=== PATIENT | female | born 1960 | race Caucasian/White ===

== ENCOUNTER → 2017-12-12 | Outpatient (CLI) | payer BC ==
[~2017-12-12] MED LIST: CEFTIN250 MG PO; LEVOTHYROXINE PO; LORTAB 5/500 501 TAB PO; PHENERGAN 25 TA25 MG PO; PREMARIN0.9 MG PO; PRILOSEC 20MG20 MG PO; [UNRECOGNIZED DRUG - OTHER]
== END ==
LOC: MC.RAD 14:59
DX: Z12.31 Encounter for screening mammogram for malignant neoplasm of breast (principal); Z98.82 Breast implant status

== ENCOUNTER 2018-08-04 16:08 | Emergency (ER) | payer BC ==
[~2018-08-04] VITALS: Ht 160 cm; Wt 49.1 kg
[2018-08-04 16:12] VITALS: TEMP 97.4
[2018-08-04 16:40] LABS: BASO % 0.1 % (0.0-2.0); EOS % 0.2 % (0-4.0); GRAN # 12.5 (1.4-6.5); GRAN % 80.9 % (42.2-75.2); LYMPH # 1.4 (1.2-3.4); LYMPH % 8.9 % (20.0-51.0); MEAN CELL VOLUME 101 fl (80.0-100.0); MEAN CORPUSCULAR HGB CONC 35 g/dl (33.0-37.0); MEAN PLATELET VOLUME 9.2 fl (7.4-10.4); MONO # 1.1 (0.1-0.6); MONO % 6.9 % (1.7-9.3); PLATELET COUNT 606 K/mm3 (130-400); RED BLOOD COUNT 1.99 M/mm3 (4.10-5.30); REDCELL DISTRIBUTION WIDTH-CV 16.9 % (11.5-14.5)
[2018-08-04 16:42] LABS: HEMATOCRIT 20.1 % (37.0-47.0); MEAN CORPUSCULAR HEMOGLOBIN 35 pg (27.0-31.0)
[2018-08-04 16:54] LABS: ALBUMIN 2.8 gm/dL (3.5-5.0); BILIRUBIN,TOTAL 0.5 mg/dL (0.0-1.0); CALCIUM 8.6 mg/dL (8.4-10.2); CREATININE, serum 0.42 mg/dL (0.52-1.25); POTASSIUM 3.2 mmol/L (3.4-5.0); TOTAL PROTEIN 5.7 gm/dL (6.4-8.2)
[2018-08-04] MEDS ORDERED: OXY IR5 MG PO (16:58)
[2018-08-04 17:04] LABS: C-REACTIVE PROTEIN 15.2 mg/dL (0.0-0.9)
[2018-08-04 18:08] LABS: PROTHROMBIN TIME 11.6 SECONDS (9.7-12.8)
[2018-08-04 20:50] VITALS: BP 136/80; PULSE 96
== END 2018-08-04 20:50 | disposition short-term general hospital (02) ==
LOC: COL.ER 16:08
PROVIDERS: Family Medicine
DX: L76.32 Postprocedural hematoma of skin and subcutaneous tissue following other procedure (principal); Z98.890 Other specified postprocedural states
CPT/HCPCS: J1170; J2405; J7030; Q9967

== ENCOUNTER → 2018-08-15 | Outpatient (CLI) | payer BC ==
[~2018-08-15] MED LIST changes: +OXY IR5 MG PO
[2018-08-15 15:53] LABS: BASO % 0.4 % (0.0-2.0); EOS # 0.1 (0.0-0.7); EOS % 0.7 % (0-4.0); GRAN # 6.9 (1.4-6.5); GRAN % 76.6 % (42.2-75.2); LYMPH % 10.7 % (20.0-51.0); MEAN CELL VOLUME 101 fl (80.0-100.0); MEAN CORPUSCULAR HGB CONC 33 g/dl (33.0-37.0); MEAN PLATELET VOLUME 9.4 fl (7.4-10.4); MONO % 11.3 % (1.7-9.3); PLATELET COUNT 504 K/mm3 (130-400); RED BLOOD COUNT 2.78 M/mm3 (4.10-5.30); REDCELL DISTRIBUTION WIDTH-CV 18.5 % (11.5-14.5)
[2018-08-15 15:54] LABS: HEMATOCRIT 28.2 % (37.0-47.0); HEMOGLOBIN 9.3 g/dl (12.5-16.0); MEAN CORPUSCULAR HEMOGLOBIN 33 pg (27.0-31.0)
[2018-08-15 16:26] LABS: ERYTHROCYTE SEDIMENTATION RATE 58 mm/hr (0-30)
== END ==
LOC: COL.LAB 15:02
DX: R68.89 Other general symptoms and signs (principal)

== ENCOUNTER → 2018-08-22 | Outpatient (CLI) | payer BC ==
[2018-08-22 12:59] LABS: BASO # 0.1 (0.0-0.2); BASO % 0.6 % (0.0-2.0); EOS # 0.1 (0.0-0.7); EOS % 0.7 % (0-4.0); GRAN # 6.5 (1.4-6.5); GRAN % 75.2 % (42.2-75.2); HEMATOCRIT 28.7 % (37.0-47.0); HEMOGLOBIN 9.6 g/dl (12.5-16.0); LYMPH # 0.9 (1.2-3.4); LYMPH % 9.9 % (20.0-51.0); MEAN CELL VOLUME 101 fl (80.0-100.0); MEAN CORPUSCULAR HEMOGLOBIN 34 pg (27.0-31.0); MEAN CORPUSCULAR HGB CONC 33 g/dl (33.0-37.0); MEAN PLATELET VOLUME 9.2 fl (7.4-10.4); MONO # 1.2 (0.1-0.6); MONO % 13.4 % (1.7-9.3); PLATELET COUNT 486 K/mm3 (130-400); RED BLOOD COUNT 2.84 M/mm3 (4.10-5.30); REDCELL DISTRIBUTION WIDTH-CV 17.5 % (11.5-14.5)
[2018-08-22 13:46] LABS: ERYTHROCYTE SEDIMENTATION RATE 72 mm/hr (0-30)
== END ==
LOC: COL.LAB 12:32
DX: R68.89 Other general symptoms and signs (principal)

== ENCOUNTER → 2018-08-29 | Outpatient (CLI) | payer BC ==
[2018-08-29 14:29] LABS: BASO # 0.1 (0.0-0.2); BASO % 0.5 % (0.0-2.0); EOS % 0.4 % (0-4.0); GRAN # 7.4 (1.4-6.5); GRAN % 77.3 % (42.2-75.2); LYMPH # 1.1 (1.2-3.4); MEAN CELL VOLUME 99 fl (80.0-100.0); MEAN CORPUSCULAR HEMOGLOBIN 34 pg (27.0-31.0); MEAN CORPUSCULAR HGB CONC 34 g/dl (33.0-37.0); MONO % 10.4 % (1.7-9.3); PLATELET COUNT 553 K/mm3 (130-400); RED BLOOD COUNT 2.98 M/mm3 (4.10-5.30); REDCELL DISTRIBUTION WIDTH-CV 16.1 % (11.5-14.5)
[2018-08-29 14:31] LABS: HEMATOCRIT 29.4 % (37.0-47.0)
[2018-08-29 14:56] LABS: ERYTHROCYTE SEDIMENTATION RATE 54 mm/hr (0-30)
== END ==
LOC: COL.LAB 13:59
DX: R68.89 Other general symptoms and signs (principal)

== ENCOUNTER 2018-12-11 10:45 | Outpatient (RCR) | payer BC | END 2018-12-12 | disposition home or self-care (01) | LOC: WSC | DX: M43.26 Fusion of spine, lumbar region (principal) ==

== ENCOUNTER → 2018-12-25 | Outpatient (CLI) | payer BC | LOC: MC.RAD 11-20 10:30 | DX: Z12.31 Encounter for screening mammogram for malignant neoplasm of breast (principal); Z98.82 Breast implant status ==

== ENCOUNTER 2019-03-26 09:45 | Outpatient (RCR) | payer BC | END 2019-04-01 | disposition home or self-care (01) | LOC: WSC | DX: M43.25 Fusion of spine, thoracolumbar region (principal) ==

== ENCOUNTER 2019-06-25 09:45 | Outpatient (RCR) | payer BC | END 2019-07-01 | disposition home or self-care (01) | LOC: WSPT | DX: Z98.1 Arthrodesis status (principal) ==

== ENCOUNTER 2019-08-09 10:15 | Outpatient (RCR) | payer BC | END 2019-09-30 | disposition home or self-care (01) | LOC: WSPT | DX: Z98.1 Arthrodesis status (principal) ==

== ENCOUNTER → 2019-11-13 | Outpatient (CLI) | payer BC | LOC: MC.RAD 10:57 | DX: Z12.31 Encounter for screening mammogram for malignant neoplasm of breast (principal) ==

== ENCOUNTER 2020-01-11 09:15 | Outpatient (RCR) | payer BC | END 2020-01-13 | LOC: WSC | DX: Z98.1 Arthrodesis status (principal) ==

== ENCOUNTER → 2020-04-14 | Outpatient (RCR) | payer BC | END | disposition home or self-care (01) | LOC: WSPT → WSC 01-15 10:37 → WSPT 01-18 09:00 → WSC 01-25 09:15 → WSPT 01-28 09:00 → WSC 02-01 09:15 → WSPT 02-04 09:00 → WSC 02-08 09:15 → WSPT 02-11 09:00 → WSC 02-25 09:15 → WSPT 03-17 10:00 → WSC 03-21 14:00 → WSPT 03-24 09:45 → WSC 03-28 09:15 → WSPT 03-31 09:00 → WSC 04-04 09:15 → WSPT 04-07 09:15 | DX: M43.25 Fusion of spine, thoracolumbar region (principal) ==

== ENCOUNTER → 2020-06-16 | Outpatient (RCR) | payer BC | END | disposition home or self-care (01) | LOC: WSPT → WSC 04-25 09:15 → WSPT 05-05 09:00 → WSC 05-16 09:15 → WSPT 05-19 09:00 → WSC 05-26 09:15 → WSPT 05-30 10:00 → WSC 06-09 09:15 → WSPT 09:00 | DX: Z98.1 Arthrodesis status (principal) ==

== ENCOUNTER 2020-09-15 09:15 | Outpatient (RCR) | payer BC | END 2020-09-18 | disposition still patient (30) | LOC: WSC | DX: Z98.1 Arthrodesis status (principal) ==

== ENCOUNTER → 2020-09-23 | Outpatient (CLI) | payer BC ==
[~2020-09-23] MED LIST changes: +CYMBALTA 30MG30 MG PO; +DESYREL 50MG50 MG PO; +DUO-KAPS1 CAP PO; +HELIOCARE PO; +HUMIRA(CF)10 MG/0.1 SQ; +MAGNESIUM250 M1 PO; +NATURE'S BLEND100 M2 PO; +NEURONTIN300 MG/CAP PO; +NORVASC2.5 MG PO; +PEPCID AC 10MG10 MG PO; +PLAQUENIL 200M200 MG PO; +PREDNISONE 5MG5 MG PO; +PREVAGEN PO; +REQUIP 0.5MG0.5 MG PO; +REVIA 50MG TABL50 MG PO; +SYNTHROID0.088 MG/T PO; +VITAMIN D31000 I1 PO; +[UNRECOGNIZED DRUG - OTHER] PO
== END ==
LOC: COL.RAD 12:30
DX: L97.513 Non-pressure chronic ulcer of other part of right foot with necrosis of muscle (principal); L03.032 Cellulitis of left toe
CPT/HCPCS: A9585

== ENCOUNTER 2020-10-03 07:59 | Outpatient (RCR) | payer BC ==
[~2020-10-03 07:59] MED LIST changes: -CYMBALTA 30MG30 MG PO; -DESYREL 50MG50 MG PO; -DUO-KAPS1 CAP PO; -HELIOCARE PO; -HUMIRA(CF)10 MG/0.1 SQ; -MAGNESIUM250 M1 PO; -NATURE'S BLEND100 M2 PO; -NEURONTIN300 MG/CAP PO; -NORVASC2.5 MG PO; -PEPCID AC 10MG10 MG PO; -PLAQUENIL 200M200 MG PO; -PREDNISONE 5MG5 MG PO; -PREVAGEN PO; -REQUIP 0.5MG0.5 MG PO; -REVIA 50MG TABL50 MG PO; -SYNTHROID0.088 MG/T PO; -VITAMIN D31000 I1 PO; -[UNRECOGNIZED DRUG - OTHER] PO
[2020-10-03 09:33] VITALS: BP 120/71; PULSE 80; TEMP 97.7
[2020-10-03] MEDS ORDERED: HUMIRA(CF)10 MG/0.1 SQ (12:22)
[2020-10-03] MEDS ORDERED: PREDNISONE 5MG5 MG PO (12:22)
[2020-10-03] MEDS ORDERED: SYNTHROID0.088 MG/T PO (12:22)
[2020-10-03] MEDS ORDERED: PLAQUENIL 200M200 MG PO (12:23)
[2020-10-03] MEDS ORDERED: NORVASC2.5 MG PO (12:24)
[2020-10-03] MEDS ORDERED: CYMBALTA 30MG30 MG PO (12:25)
[2020-10-03] MEDS ORDERED: NEURONTIN300 MG/CAP PO (12:25)
[2020-10-03] MEDS ORDERED: DESYREL 50MG50 MG PO (12:26)
[2020-10-03] MEDS ORDERED: REVIA 50MG TABL50 MG PO (12:26)
[2020-10-03] MEDS ORDERED: PEPCID AC 10MG10 MG PO (12:27)
[2020-10-03] MEDS ORDERED: REQUIP 0.5MG0.5 MG PO (12:27)
[2020-10-03] MEDS ORDERED: VITAMIN D31000 I1 PO (12:28)
[2020-10-03] MEDS ORDERED: MAGNESIUM250 M1 PO (12:28)
[2020-10-03] MEDS ORDERED: NATURE'S BLEND100 M2 PO (12:28)
[2020-10-03] MEDS ORDERED: DUO-KAPS1 CAP PO (12:29)
[2020-10-03] MEDS ORDERED: HELIOCARE PO (12:29)
[2020-10-03] MEDS ORDERED: PREVAGEN PO (12:30)
[2020-10-03] MEDS ORDERED: [UNRECOGNIZED DRUG - OTHER] PO (12:30)
--- NOTE | 2020-10-03 16:35 | NUR ---
Call received from Isma Dorsey at [facility].Pt will start receiving home health starting 10/04/20.Order enclosed in chart.HH will do all dressing changes and labs.
== END 2020-10-03 16:36 | disposition home or self-care (01) ==
LOC: EUO 07:59
DX: Z45.2 Encounter for adjustment and management of vascular access device (principal); A49.02 Methicillin resistant Staphylococcus aureus infection, unspecified site; M86.9 Osteomyelitis, unspecified
CPT/HCPCS: C1751; J0696

== ENCOUNTER 2020-11-20 10:31 | Outpatient (CLI) | payer BC ==
[~2020-11-20] VITALS: Ht 160 cm; Wt 51.4 kg
[~2020-11-20 10:31] MED LIST changes: +CYMBALTA 30MG30 MG PO; +DESYREL 50MG50 MG PO; +DUO-KAPS1 CAP PO; +HELIOCARE PO; +HUMIRA(CF)10 MG/0.1 SQ; +MAGNESIUM250 M1 PO; +NATURE'S BLEND100 M2 PO; +NEURONTIN300 MG/CAP PO; +NORVASC2.5 MG PO; +PEPCID AC 10MG10 MG PO; +PLAQUENIL 200M200 MG PO; +PREDNISONE 5MG5 MG PO; +PREVAGEN PO; +REQUIP 0.5MG0.5 MG PO; +REVIA 50MG TABL50 MG PO; +SYNTHROID0.088 MG/T PO; +VITAMIN D31000 I1 PO; +[UNRECOGNIZED DRUG - OTHER] PO
[2020-11-20 10:54] VITALS: BP 138/85; PULSE 80; TEMP 98.3
== END 2020-11-20 12:44 | disposition home or self-care (01) ==
LOC: EUO 10:31
DX: M86.9 Osteomyelitis, unspecified (principal); B99.9 Unspecified infectious disease

== ENCOUNTER 2020-12-16 09:00 | Outpatient (RCR) | payer BC | END 2020-12-18 | disposition home or self-care (01) | LOC: WSC | DX: Z98.1 Arthrodesis status (principal) ==

== ENCOUNTER → 2021-02-27 | Outpatient (CLI) | payer BC | LOC: ZCOL.LAB 16:28 | DX: L84 Corns and callosities (principal) ==

== ENCOUNTER 2021-03-20 09:00 | Outpatient (RCR) | payer BC | END 2021-03-22 | disposition home or self-care (01) | LOC: WSPT | DX: Z98.1 Arthrodesis status (principal) ==

== ENCOUNTER 2021-06-08 09:00 | Outpatient (RCR) | payer BC | END 2021-06-12 | disposition home or self-care (01) | LOC: WSPT | DX: Z98.1 Arthrodesis status (principal) ==

== ENCOUNTER 2021-07-09 11:00 | Outpatient (RCR) | payer BC ==
[2021-06-17 09:43] VITALS: BP 128/80; PULSE 74; TEMP 97.8
[2021-06-17 09:54] LABS: BASO # 0.1 K/mm3 (0.0-0.2); BASO % 0.6 % (0.0-2.0); EOS # 0.1 K/mm3 (0.0-0.7); EOS % 0.9 % (0.0-4.0); GRAN # 9.1 K/mm3 (1.4-6.5); HEMOGLOBIN 11.7 g/dl (12.5-16.0); LYMPH # 0.7 K/mm3 (1.2-3.4); LYMPH % 6.3 % (20.0-51.0); MEAN CELL VOLUME 94 fl (80.0-100.0); MEAN CORPUSCULAR HEMOGLOBIN 33 pg (27-31); MEAN CORPUSCULAR HGB CONC 35 g/dl (33.0-37.0); MEAN PLATELET VOLUME 9.1 fl (7.4-10.4); MONO # 1.1 K/mm3 (0.1-0.6); MONO % 9.5 % (1.7-9.3); PLATELET COUNT 253 K/mm3 (130-400); RED BLOOD COUNT 3.58 M/mm3 (4.10-5.30); REDCELL DISTRIBUTION WIDTH-CV 14.8 % (11.5-14.5)
[2021-06-17 10:06] LABS: BILIRUBIN,TOTAL 0.4 mg/dL (0.2-1.2); C-REACTIVE PROTEIN 0.7 mg/dL (0.00-0.50); CALCIUM 9.4 mg/dL (8.4-10.2); CREATININE, serum 0.6 mg/dL (0.57-1.11); POTASSIUM 3.4 mmol/L (3.5-4.5); TOTAL PROTEIN 7.5 gm/dL (6.2-8.1)
[2021-06-17 10:14] LABS: HEMATOCRIT 33.5 % (37.0-47.0)
[2021-06-17 11:24] LABS: ERYTHROCYTE SEDIMENTATION RATE 10 mm/hr (0-30)
[2021-06-24 09:31] LABS: BASO # 0.1 K/mm3 (0.0-0.2); BASO % 0.4 % (0.0-2.0); GRAN # 9.4 K/mm3 (1.4-6.5); GRAN % 82.2 % (42.2-75.2); HEMOGLOBIN 11.4 g/dl (12.5-16.0); LYMPH # 0.7 K/mm3 (1.2-3.4); LYMPH % 6.4 % (20.0-51.0); MEAN CELL VOLUME 94 fl (80.0-100.0); MEAN CORPUSCULAR HEMOGLOBIN 32 pg (27-31); MEAN CORPUSCULAR HGB CONC 34 g/dl (33.0-37.0); MONO # 1.2 K/mm3 (0.1-0.6); MONO % 10.4 % (1.7-9.3); PLATELET COUNT 258 K/mm3 (130-400); RED BLOOD COUNT 3.58 M/mm3 (4.10-5.30); REDCELL DISTRIBUTION WIDTH-CV 14.6 % (11.5-14.5)
[2021-06-24 09:35] LABS: HEMATOCRIT 33.7 % (37.0-47.0)
[2021-06-24 09:52] VITALS: BP 126/83; PULSE 75; TEMP 97.9
[2021-06-24 10:05] LABS: ERYTHROCYTE SEDIMENTATION RATE 16 mm/hr (0-30)
[2021-06-24 10:11] LABS: ALBUMIN 4.1 gm/dL (3.4-4.8); BILIRUBIN,TOTAL 0.5 mg/dL (0.2-1.2); C-REACTIVE PROTEIN 0.57 mg/dL (0.00-0.50); CALCIUM 9.3 mg/dL (8.4-10.2); CREATININE, serum 0.57 mg/dL (0.57-1.11); POTASSIUM 3.7 mmol/L (3.5-4.5); TOTAL PROTEIN 7.6 gm/dL (6.2-8.1)
[2021-07-01 09:23] LABS: BASO % 0.4 % (0.0-2.0); GRAN # 7.5 K/mm3 (1.4-6.5); GRAN % 78.8 % (42.2-75.2); HEMOGLOBIN 10.7 g/dl (12.5-16.0); LYMPH # 0.8 K/mm3 (1.2-3.4); LYMPH % 8.7 % (20.0-51.0); MEAN CELL VOLUME 94 fl (80.0-100.0); MEAN CORPUSCULAR HEMOGLOBIN 32 pg (27-31); MEAN CORPUSCULAR HGB CONC 34 g/dl (33.0-37.0); MEAN PLATELET VOLUME 9.1 fl (7.4-10.4); MONO # 1.1 K/mm3 (0.1-0.6); MONO % 11.7 % (1.7-9.3); PLATELET COUNT 286 K/mm3 (130-400); RED BLOOD COUNT 3.33 M/mm3 (4.10-5.30)
[2021-07-01 09:28] LABS: HEMATOCRIT 31.2 % (37.0-47.0)
[2021-07-01 09:37] LABS: ALBUMIN 3.8 gm/dL (3.4-4.8); BILIRUBIN,TOTAL 0.3 mg/dL (0.2-1.2); C-REACTIVE PROTEIN 0.54 mg/dL (0.00-0.50); CALCIUM 9.1 mg/dL (8.4-10.2); CREATININE, serum 0.55 mg/dL (0.57-1.11); POTASSIUM 3.7 mmol/L (3.5-4.5)
[2021-07-01 09:43] VITALS: BP 124/77; PULSE 77; TEMP 98.1
[2021-07-01 10:08] LABS: ERYTHROCYTE SEDIMENTATION RATE 8 mm/hr (0-30)
[~2021-07-09] VITALS: Ht 160 cm; Wt 48.7 kg
[2021-07-09 11:03] LABS: BASO % 0.4 % (0.0-2.0); GRAN # 8.7 K/mm3 (1.4-6.5); GRAN % 82.8 % (42.2-75.2); HEMOGLOBIN 11.2 g/dl (12.5-16.0); LYMPH # 0.6 K/mm3 (1.2-3.4); LYMPH % 5.5 % (20.0-51.0); MEAN CELL VOLUME 93 fl (80.0-100.0); MEAN CORPUSCULAR HEMOGLOBIN 32 pg (27-31); MEAN CORPUSCULAR HGB CONC 35 g/dl (33.0-37.0); MEAN PLATELET VOLUME 9.1 fl (7.4-10.4); MONO # 1.1 K/mm3 (0.1-0.6); MONO % 10.8 % (1.7-9.3); PLATELET COUNT 263 K/mm3 (130-400); RED BLOOD COUNT 3.51 M/mm3 (4.10-5.30); REDCELL DISTRIBUTION WIDTH-CV 14.4 % (11.5-14.5)
[2021-07-09 11:16] LABS: HEMATOCRIT 32.5 % (37.0-47.0)
[2021-07-09 11:17] VITALS: BP 145/87; PULSE 76; TEMP 97.6
[2021-07-09 11:21] LABS: ALBUMIN 4.1 gm/dL (3.4-4.8); BILIRUBIN,TOTAL 0.4 mg/dL (0.2-1.2); C-REACTIVE PROTEIN 0.93 mg/dL (0.00-0.50); CALCIUM 9.2 mg/dL (8.4-10.2); CREATININE, serum 0.56 mg/dL (0.57-1.11); POTASSIUM 3.9 mmol/L (3.5-4.5); TOTAL PROTEIN 7.4 gm/dL (6.2-8.1)
[2021-07-09 11:34] LABS: ERYTHROCYTE SEDIMENTATION RATE 12 mm/hr (0-30)
== END 2021-07-13 | disposition home or self-care (01) ==
LOC: EUO
PROVIDERS: Internal Medicine Infectious Disease
DX: S91.301D Unspecified open wound, right foot, subsequent encounter (principal); M86.9 Osteomyelitis, unspecified

== ENCOUNTER → 2021-07-09 | Outpatient (CLI) | payer BC | LOC: ZCOL.LAB 16:10 | DX: S91.301D Unspecified open wound, right foot, subsequent encounter (principal) ==

== ENCOUNTER → 2021-08-10 | Outpatient (RCR) | payer BC | END | disposition home or self-care (01) | LOC: WSPT | DX: R53.1 Weakness (principal) ==

== ENCOUNTER 2021-09-07 09:00 | Outpatient (RCR) | payer BC | END 2021-09-10 | disposition home or self-care (01) | LOC: WSPT | DX: R53.1 Weakness (principal); Z98.890 Other specified postprocedural states ==

== ENCOUNTER 2021-10-09 09:00 | Outpatient (RCR) | payer BC | END 2021-10-10 | disposition still patient (30) | LOC: WSPT | DX: R53.1 Weakness (principal); R20.0 Anesthesia of skin; Z98.890 Other specified postprocedural states ==

== ENCOUNTER 2021-11-06 09:00 | Outpatient (RCR) | payer BC | END 2021-11-10 | disposition home or self-care (01) | LOC: WSPT | DX: R53.1 Weakness (principal) ==

== ENCOUNTER 2021-12-04 09:00 | Outpatient (RCR) | payer BC | END 2021-12-10 | disposition home or self-care (01) | LOC: WSPT | DX: R26.89 Other abnormalities of gait and mobility (principal) ==

== ENCOUNTER 2021-12-07 09:00 | Outpatient (RCR) | payer BC | END 2021-12-10 | disposition home or self-care (01) | LOC: WSPT | DX: R26.89 Other abnormalities of gait and mobility (principal) ==

== ENCOUNTER 2022-01-08 09:00 | Outpatient (RCR) | payer BC | END 2022-01-10 | disposition home or self-care (01) | LOC: WSPT | DX: R26.89 Other abnormalities of gait and mobility (principal); R53.81 Other malaise ==

== ENCOUNTER → 2022-01-12 | Outpatient (CLI) | payer BC ==
[~2022-01-12] MED LIST changes: +CEPHALEXIN500 M1 PO
== END ==
LOC: MC.RAD 10:45
DX: Z12.31 Encounter for screening mammogram for malignant neoplasm of breast (principal)

== ENCOUNTER 2022-01-15 17:52 | Emergency (ER) | payer BC ==
[~2022-01-15] VITALS: Ht 162.6 cm; Wt 50.0 kg
[~2022-01-15 17:52] MED LIST changes: -CEPHALEXIN500 M1 PO
[2022-01-15 18:17] VITALS: BP 126/74; TEMP 98.2
[2022-01-15] MEDS ORDERED: CEPHALEXIN500 M1 PO (19:30)
[2022-01-15 19:50] VITALS: PULSE 80
== END 2022-01-15 19:50 | disposition home or self-care (01) ==
LOC: COL.ER 17:52
DX: S41.111A Laceration without foreign body of right upper arm, initial encounter (principal); Z23 Encounter for immunization; W01.0XXA Fall on same level from slipping, tripping and stumbling without subsequent striking against object, initial encounter; Y92.59 Other trade areas as the place of occurrence of the external cause; Y99.0 Civilian activity done for income or pay

== ENCOUNTER 2022-02-09 09:00 | Outpatient (RCR) | payer BC ==
[~2022-02-09 09:00] MED LIST changes: +CEPHALEXIN500 M1 PO
== END 2022-02-10 | disposition home or self-care (01) ==
LOC: WSPT
DX: R53.81 Other malaise (principal)

== ENCOUNTER → 2022-09-10 | Outpatient (RCR) | payer BC | END | disposition home or self-care (01) | LOC: WSPT | DX: R26.89 Other abnormalities of gait and mobility (principal) ==

== ENCOUNTER 2022-10-08 09:00 | Outpatient (RCR) | payer BC | END 2022-10-10 | disposition home or self-care (01) | LOC: WSPT | DX: R53.81 Other malaise (principal); R26.89 Other abnormalities of gait and mobility ==

== ENCOUNTER 2023-02-08 09:00 | Outpatient (RCR) | payer BC | END 2023-02-10 | disposition home or self-care (01) | LOC: WSPT | DX: R26.89 Other abnormalities of gait and mobility (principal) ==

== ENCOUNTER 2023-03-08 09:00 | Outpatient (RCR) | payer BC ==
[2005-08-18 10:25] VITALS: TEMP 97.1
[2023-03-11] MEDS ORDERED: CEPHALEXIN500 M1 PO (15:10)
[2023-03-18] MEDS ORDERED: ENBREL50 MG/1 ML SQ (22:51)
[2023-03-18] MEDS ORDERED: DESYREL 100MG100 MG PO (22:52)
[2023-03-18] MEDS ORDERED: TYLENOL 8 HR PO (22:57)
== END 2023-03-12 | disposition home or self-care (01) ==
LOC: WSPT
DX: R26.89 Other abnormalities of gait and mobility (principal)

== ENCOUNTER 2023-05-10 08:12 | Outpatient (RCR) | payer BC ==
[~2023-05-10 08:12] MED LIST changes: +DESYREL 100MG100 MG PO; +ENBREL50 MG/1 ML SQ; +TYLENOL 8 HR PO
== END 2023-05-12 | disposition home or self-care (01) ==
LOC: WSPT
DX: R26.89 Other abnormalities of gait and mobility (principal)

== ENCOUNTER 2023-06-10 09:00 | Outpatient (RCR) | payer BC | END 2023-06-12 | disposition home or self-care (01) | LOC: WSPT | DX: R53.81 Other malaise (principal); R26.89 Other abnormalities of gait and mobility ==

== ENCOUNTER → 2023-06-10 | Outpatient (CLI) | payer BC | LOC: COL.RAD 13:27 | DX: Z12.2 Encounter for screening for malignant neoplasm of respiratory organs (principal); F17.200 Nicotine dependence, unspecified, uncomplicated ==

== ENCOUNTER → 2023-07-13 | Outpatient (RCR) | payer BC | END | disposition home or self-care (01) | LOC: WSPT | DX: R26.89 Other abnormalities of gait and mobility (principal) ==

== ENCOUNTER 2023-08-09 09:00 | Outpatient (RCR) | payer BC | END 2023-08-11 | disposition home or self-care (01) | LOC: WSPT | DX: R53.81 Other malaise (principal); R26.89 Other abnormalities of gait and mobility ==

== ENCOUNTER 2023-09-02 12:45 | Outpatient (RCR) | payer BC | END 2023-09-11 | disposition home or self-care (01) | LOC: WSPT | DX: R26.89 Other abnormalities of gait and mobility (principal); R53.1 Weakness ==

== ENCOUNTER → 2023-11-11 | Outpatient (RCR) | payer BC | END | disposition home or self-care (01) | LOC: WSPT | DX: R53.1 Weakness (principal); R26.89 Other abnormalities of gait and mobility; R53.81 Other malaise ==